=== PATIENT | female | born 1950 | race Caucasian/White ===

== ENCOUNTER 2017-12-26 08:31 | Emergency (ER) | payer MEDICARE, BC ==
[~2017-12-26] VITALS: Ht 160 cm; Wt 65.9 kg
[~2017-12-26 08:31] MED LIST: ASPI81TA52 PO; ATOR20TA66 PO; CARV3.1289 PO; LISI10TA4 PO; NITR0.4T48 SL; NO HOME MEDS
[2017-12-26] MEDS ORDERED: ipratropium/albuterol 3ml nebule NEB ONE (09:15)
[2017-12-26] MEDS ORDERED: ALB0.5UD IH (09:30)
[2017-12-26] MEDS ORDERED: ALBU18HF2 INH (09:30)
[2017-12-26] MEDS ORDERED: BENZ-16 PO (09:31)
[2017-12-26 10:01] VITALS: BP 135/71
== END 2017-12-26 10:04 | disposition home or self-care (01) ==
LOC: ER 08:31
DX: J06.9 Acute upper respiratory infection, unspecified (principal); J45.909 Unspecified asthma, uncomplicated; Z88.5 Allergy status to narcotic agent; Z88.8 Allergy status to other drugs, medicaments and biological substances; Z79.82 Long term (current) use of aspirin; Z79.899 Other long term (current) drug therapy
CPT/HCPCS: 94640; 94760; 99283